=== PATIENT | female | born 1990 | race Caucasian/White ===

== ENCOUNTER → 2023-07-19 14:37 | Outpatient (REF) | payer OTHER, SELFPAY | LOC: PNTC 14:37 | PROVIDERS: ATTENDING PHYSICIAN Obstetrics & Gynecology | DX: O24.414 Gestational diabetes mellitus in pregnancy, insulin controlled (principal); N96 Recurrent pregnancy loss; D68.61 Antiphospholipid syndrome; O35.5XX0 Maternal care for (suspected) damage to fetus by drugs, not applicable or unspecified | CPT/HCPCS: 36415; 59025; 76816; 86850; 86900; 86901; J2790 ==

== ENCOUNTER 2023-07-26 15:13 | Observation (INO) | payer OTHER, SELFPAY ==
[2023-07-26 15:59] LABS: % Basophils 0.3 % (0-2); % Eosinophils 0.9 % (0-6); % Immature Granulocytes 0.4 % (0-0.5); % Lymphocytes 18.1 % (20.5-51.1); % Monocytes 6.6 % (1.7-9.3); % Neutrophils 73.7 % (42.2-75.2); Absolute Eosinophils 0.1 10^3/uL (0-0.7); Absolute Immature Granulocytes 0.1 10^3/uL (0-0.05); Absolute Monocytes 0.7 10^3/uL (0.1-0.6); Absolute Neutrophils 8.3 10^3/uL (1.4-6.5); Hematocrit 35.3 % (37.0-47.0); Hemoglobin 12.6 g/dL (12.0-16.0); Mean Corp Hgb Conc. 35.7 g/dL (33.0-37.0); Mean Corpuscular Hgb 28.8 pg (27.0-31.0); Mean Corpuscular Volume 80.6 fL (81.0-99.0); Mean Platelet Volume 9.9 fL (7.4-10.4); Nucleated Red Blood Cells % 0 %; Platelet Count 217 10^3/uL (130-400); Red Blood Cell Count 4.38 10^6/uL (4.20-5.40); Red Cell Dist. Width 13.6 % (11.5-14.5); White Blood Cell Count 11.3 10^3/uL (4.8-10.8)
[2023-07-26 16:00] VITALS: BP 150/102; BMI 38.5
[2023-07-26 16:00] LABS: Urine Albumin Negative (Neg - Trace); Urine Bilirubin Negative (Negative); Urine Character Slightly Cloudy (Clear); Urine Color Yellow; Urine Glucose 2+ (Negative); Urine Ketone Trace (Negative); Urine Leukocyte Negative (Negative); Urine Nitrite Negative (Negative); Urine Occult Blood Negative (Negative); Urine Urobilinogen Negative (Neg - 1+)
[2023-07-26 16:15] LABS: ALT (SGPT) 14 U/L (0-35); AST (SGOT) 20 U/L (14-36); Albumin 3.3 g/dl (3.5-5.0); Alkaline Phosphatase 110 U/L (38-126); Blood Urea Nitrogen 11 mg/dl (7-17); Calcium 8.7 mg/dl (8.4-10.2); Carbon Dioxide 21 mmol/L (22-30); Chloride 106 mmol/L (98-107); Estimated Creatinine Clearance > 125 ml/min; Glucose 145 mg/dl (70-99); Potassium 3.7 mmol/L (3.5-5.1); Sodium 130 mmol/L (135-145); Total Bilirubin 0.4 mg/dl (0.2-1.3); Total Protein 6.1 g/dl (6.3-8.2); Uric Acid 5.3 mg/dl (2.5-6.2); eGFR > 60.00
[2023-07-26 16:37] LABS: Urine Protein < 5 mg/dl
== END 2023-07-26 17:15 | disposition home or self-care (01) ==
LOC: PNTC-IN 15:13
PROVIDERS: ADMITTING PHYSICIAN Obstetrics & Gynecology; ATTENDING PHYSICIAN Obstetrics & Gynecology
DX: O26.23 Pregnancy care for patient with recurrent pregnancy loss, third trimester (principal); Z3A.33 33 weeks gestation of pregnancy; O99.113 Other diseases of the blood and blood-forming organs and certain disorders involving the immune mechanism complicating pregnancy, third trimester; D68.61 Antiphospholipid syndrome; O40.3XX0 Polyhydramnios, third trimester, not applicable or unspecified; O24.414 Gestational diabetes mellitus in pregnancy, insulin controlled; F11.20 Opioid dependence, uncomplicated; Z88.8 Allergy status to other drugs, medicaments and biological substances; Z91.048 Other nonmedicinal substance allergy status
CPT/HCPCS: 59025; 76815; 80053; 81003; 82570; 84156; 84550; 85025; G0378

== ENCOUNTER 2023-07-28 10:10 | Observation (INO) | payer OTHER, SELFPAY ==
[2023-07-28 10:44] VITALS: BP 152/87; BMI 38.6
[2023-07-28 12:37] LABS: Hematocrit 37.8 % (37.0-47.0); Hemoglobin 13.2 g/dL (12.0-16.0); Mean Corp Hgb Conc. 34.9 g/dL (33.0-37.0); Mean Corpuscular Hgb 28.2 pg (27.0-31.0); Mean Corpuscular Volume 80.8 fL (81.0-99.0); Mean Platelet Volume 9.9 fL (7.4-10.4); Platelet Count 222 10^3/uL (130-400); Red Blood Cell Count 4.68 10^6/uL (4.20-5.40); Red Cell Dist. Width 13.7 % (11.5-14.5); White Blood Cell Count 12.6 10^3/uL (4.8-10.8)
[2023-07-28] MEDS: CELESTONE SOLUSPAN 2 MG IM (12:40)
[2023-07-28 12:55] LABS: ALT (SGPT) 13 U/L (0-35); AST (SGOT) 20 U/L (14-36); Albumin 3.3 g/dl (3.5-5.0); Alkaline Phosphatase 113 U/L (38-126); Blood Urea Nitrogen 11 mg/dl (7-17); Calcium 8.8 mg/dl (8.4-10.2); Carbon Dioxide 23 mmol/L (22-30); Chloride 105 mmol/L (98-107); Estimated Creatinine Clearance > 125 ml/min; Glucose 57 mg/dl (70-99); Potassium 3.7 mmol/L (3.5-5.1); Sodium 133 mmol/L (135-145); Total Bilirubin 0.6 mg/dl (0.2-1.3); Total Protein 6.2 g/dl (6.3-8.2); eGFR > 60.00
[2023-07-28] MEDS: METHADONE 100 MG/10 ML 9 MG PO (13:49)
[2023-07-28 15:32] LABS: Glucose - Point of Care 149 mg/dl (70-99)
[2023-07-28] MEDS: NOVOLOG FLEXPEN-HIGH RESISTANCE 1 UNITS SC (16:09)
[2023-07-28 18:39] LABS: Glucose - Point of Care 212 mg/dl (70-99)
[2023-07-28] MEDS: HUMULIN N KWIKPEN 20 UNITS SC (18:39)
[2023-07-28] MEDS: NovoLIN R Flexpen 10 UNITS SC (18:44)
[2023-07-28] MEDS: PRENATAL PLUS 1 TABLET PO (20:25)
[2023-07-28 21:02] LABS: Glucose - Point of Care 216 mg/dl (70-99)
[2023-07-28] MEDS: NOVOLOG FLEXPEN-HIGH RESISTANCE 4 UNITS SC (21:07)
[2023-07-29] MEDS: HUMULIN N KWIKPEN SC (00:04)
[2023-07-29] MEDS: NovoLIN R Flexpen SC (00:05)
[2023-07-29 06:08] LABS: Glucose - Point of Care 174 mg/dl (70-99)
[2023-07-29] MEDS: NOVOLOG FLEXPEN-HIGH RESISTANCE 2 UNITS SC ×3 (06:10→14:11)
[2023-07-29 06:46] LABS: ALT (SGPT) 14 U/L (0-35); AST (SGOT) 18 U/L (14-36); Albumin 3.1 g/dl (3.5-5.0); Alkaline Phosphatase 110 U/L (38-126); Blood Urea Nitrogen 14 mg/dl (7-17); Calcium 9.2 mg/dl (8.4-10.2); Carbon Dioxide 21 mmol/L (22-30); Chloride 103 mmol/L (98-107); Estimated Creatinine Clearance > 125 ml/min; Glucose 179 mg/dl (70-99); Potassium 4.1 mmol/L (3.5-5.1); Sodium 133 mmol/L (135-145); Total Bilirubin 0.5 mg/dl (0.2-1.3); Total Protein 5.9 g/dl (6.3-8.2); eGFR > 60.00
[2023-07-29 06:52] LABS: Hematocrit 37.9 % (37.0-47.0); Hemoglobin 12.9 g/dL (12.0-16.0); Mean Corpuscular Hgb 28.7 pg (27.0-31.0); Mean Corpuscular Volume 84.2 fL (81.0-99.0); Mean Platelet Volume 10.2 fL (7.4-10.4); Platelet Count 241 10^3/uL (130-400); Red Cell Dist. Width 13.6 % (11.5-14.5); White Blood Cell Count 16.8 10^3/uL (4.8-10.8)
[2023-07-29] MEDS: NovoLIN R Flexpen 10 UNITS SC ×2 (07:41→17:13)
[2023-07-29] MEDS: HUMULIN N KWIKPEN 20 UNITS SC ×2 (07:45→17:10)
[2023-07-29] MEDS: METHADONE 100 MG/10 ML 9 MG PO ×2 (07:47→15:56)
[2023-07-29] MEDS: HEPARIN 5000 UNITS SC ×3 (08:12→23:52)
[2023-07-29 10:24] LABS: Glucose - Point of Care 188 mg/dl (70-99)
[2023-07-29] MEDS: CELESTONE SOLUSPAN 2 MG IM (12:51)
[2023-07-29 13:06] LABS: Urine Protein < 5 mg/dl (0-12)
[2023-07-29 13:07] LABS: 24 Hour Urine Total Volume 1300 ml
[2023-07-29 14:08] LABS: Glucose - Point of Care 166 mg/dl (70-99)
[2023-07-29 15:19] LABS: Serum Creatinine 0.5 mg/dl (0.7-1.5)
[2023-07-29 15:20] LABS: 24 Hour Urine Total Volume 1300 ml; Height Cm 162.56 CM
[2023-07-29 15:25] LABS: Surface Area 2.056
[2023-07-29] MEDS: ADACEL 0.5 ML IM (15:36)
[2023-07-29] MEDS: TUMS EX (EXTRA STRENGTH) CHEWABLE 2 TABLET PO (17:33)
[2023-07-29 19:49] LABS: Glucose - Point of Care 225 mg/dl (70-99)
[2023-07-29] MEDS: NOVOLOG FLEXPEN-HIGH RESISTANCE 4 UNITS SC (19:55)
[2023-07-29] MEDS: PRENATAL PLUS 1 TABLET PO (23:52)
[2023-07-30] MEDS: NOVOLOG FLEXPEN-HIGH RESISTANCE 1 UNITS SC (07:01)
[2023-07-30 07:05] LABS: Glucose - Point of Care 149 mg/dl (70-99)
[2023-07-30] MEDS: NovoLIN R Flexpen 10 UNITS SC ×2 (07:54→17:13)
[2023-07-30] MEDS: HUMULIN N KWIKPEN 20 UNITS SC ×2 (07:54→17:14)
[2023-07-30] MEDS: METHADONE 100 MG/10 ML 9 MG PO ×2 (07:57→13:48)
[2023-07-30] MEDS: HEPARIN 5000 UNITS SC ×2 (07:57→16:13)
[2023-07-30] MEDS: NOVOLOG FLEXPEN-HIGH RESISTANCE 2 UNITS SC ×2 (10:30→13:49)
[2023-07-30 10:31] LABS: Glucose - Point of Care 168 mg/dl (70-99)
[2023-07-30 13:47] LABS: Glucose - Point of Care 187 mg/dl (70-99)
[2023-07-30] MEDS: TUMS EX (EXTRA STRENGTH) CHEWABLE 2 TABLET PO (14:39)
[2023-07-30 19:35] LABS: Glucose - Point of Care 227 mg/dl (70-99)
[2023-07-30] MEDS: NOVOLOG FLEXPEN-HIGH RESISTANCE 4 UNITS SC (19:43)
[2023-07-31] MEDS: HEPARIN 5000 UNITS SC ×3 (00:01→15:59)
[2023-07-31] MEDS: PRENATAL PLUS 1 TABLET PO (00:03)
[2023-07-31 06:18] LABS: Glucose - Point of Care 112 mg/dl (70-99)
[2023-07-31] MEDS: NOVOLOG FLEXPEN-HIGH RESISTANCE 1 UNITS SC ×2 (06:22→10:15)
[2023-07-31] MEDS: METHADONE 100 MG/10 ML 9 MG PO ×2 (07:41→14:09)
[2023-07-31] MEDS: NovoLIN R Flexpen 10 UNITS SC ×2 (07:42→17:25)
[2023-07-31] MEDS: HUMULIN N KWIKPEN 20 UNITS SC ×2 (07:42→17:25)
[2023-07-31 10:15] LABS: Glucose - Point of Care 127 mg/dl (70-99)
[2023-07-31 13:28] LABS: Glucose - Point of Care 151 mg/dl (70-99)
[2023-07-31] MEDS: NOVOLOG FLEXPEN-HIGH RESISTANCE 2 UNITS SC ×2 (13:28→20:15)
[2023-07-31 20:28] LABS: Glucose - Point of Care 181 mg/dl (70-99)
[2023-08-01] MEDS: HEPARIN 5000 UNITS SC ×2 (00:06→08:03)
[2023-08-01] MEDS: PRENATAL PLUS 1 TABLET PO (00:06)
[2023-08-01 06:16] LABS: Glucose - Point of Care 105 mg/dl (70-99)
[2023-08-01] MEDS: NOVOLOG FLEXPEN-HIGH RESISTANCE 1 UNITS SC ×2 (06:36→10:06)
[2023-08-01 06:41] LABS: % Basophils 0.3 % (0-2); % Eosinophils 0.8 % (0-6); % Immature Granulocytes 0.9 % (0-0.5); % Lymphocytes 21.9 % (20.5-51.1); % Monocytes 8.1 % (1.7-9.3); Absolute Eosinophils 0.1 10^3/uL (0-0.7); Absolute Immature Granulocytes 0.1 10^3/uL (0-0.05); Absolute Lymphocytes 2.8 10^3/uL (1.2-3.4); Absolute Neutrophils 8.7 10^3/uL (1.4-6.5); Hematocrit 37.5 % (37.0-47.0); Hemoglobin 12.8 g/dL (12.0-16.0); Mean Corp Hgb Conc. 34.1 g/dL (33.0-37.0); Mean Corpuscular Hgb 28.8 pg (27.0-31.0); Mean Corpuscular Volume 84.3 fL (81.0-99.0); Mean Platelet Volume 10.5 fL (7.4-10.4); Nucleated Red Blood Cells % 0 %; Platelet Count 208 10^3/uL (130-400); Red Blood Cell Count 4.45 10^6/uL (4.20-5.40); Red Cell Dist. Width 13.5 % (11.5-14.5); White Blood Cell Count 12.8 10^3/uL (4.8-10.8)
[2023-08-01 06:55] LABS: ALT (SGPT) 15 U/L (0-35); AST (SGOT) 23 U/L (14-36); Alkaline Phosphatase 104 U/L (38-126); Blood Urea Nitrogen 13 mg/dl (7-17); Carbon Dioxide 25 mmol/L (22-30); Chloride 104 mmol/L (98-107); Estimated Creatinine Clearance > 125 ml/min; Glucose 107 mg/dl (70-99); Potassium 4.2 mmol/L (3.5-5.1); Sodium 132 mmol/L (135-145); Total Bilirubin 0.4 mg/dl (0.2-1.3); Total Protein 5.6 g/dl (6.3-8.2); eGFR > 60.00
[2023-08-01] MEDS: NovoLIN R Flexpen 10 UNITS SC (07:31)
[2023-08-01] MEDS: HUMULIN N KWIKPEN 20 UNITS SC (07:33)
[2023-08-01] MEDS: PRENATAL PLUS PO (08:00)
[2023-08-01] MEDS: METHADONE 100 MG/10 ML 9 MG PO (08:02)
--- NOTE | 2023-08-01 09:42 | CM ---
CM reviewed pt with nursing
Anticipate dc soon
No current CM or discharge needs noted
CM will remain available for dc planning and resource coordination if needed
[2023-08-01 10:05] LABS: Glucose - Point of Care 127 mg/dl (70-99)
== END 2023-08-01 13:52 | disposition home or self-care (01) ==
LOC: LDRP 10:10
PROVIDERS: Obstetrics & Gynecology; ADMITTING PHYSICIAN Obstetrics & Gynecology
DX: O24.414 Gestational diabetes mellitus in pregnancy, insulin controlled (principal); Z3A.34 34 weeks gestation of pregnancy; G43.909 Migraine, unspecified, not intractable, without status migrainosus; F11.90 Opioid use, unspecified, uncomplicated; O99.353 Diseases of the nervous system complicating pregnancy, third trimester; G35 Multiple sclerosis; O99.213 Obesity complicating pregnancy, third trimester; Z82.49 Family history of ischemic heart disease and other diseases of the circulatory system; Z83.3 Family history of diabetes mellitus; Z88.8 Allergy status to other drugs, medicaments and biological substances; Z91.048 Other nonmedicinal substance allergy status; Z98.1 Arthrodesis status; Z79.82 Long term (current) use of aspirin; Z79.01 Long term (current) use of anticoagulants; Z79.4 Long term (current) use of insulin; Z23 Encounter for immunization
CPT/HCPCS: 76815; 80053; 81050; 82575; 82962; 84156; 85025; 85027; 90715; G0378

== ENCOUNTER 2023-08-04 08:35 | Inpatient (IN) | payer OTHER, SELFPAY ==
[2023-08-04 09:05] VITALS: BP 176/107; BMI 38.8
[2023-08-04] MEDS: APRESOLINE 10 MG IV ×2 (09:07→09:25)
[2023-08-04] MEDS: MAGNESIUM SULFATE 100 IV (09:27)
[2023-08-04] MEDS: LR 1000 IV ×2 (09:28→21:29)
[2023-08-04 09:45] LABS: % Basophils 0.2 % (0-2); % Immature Granulocytes 0.6 % (0-0.5); % Lymphocytes 22.5 % (20.5-51.1); % Neutrophils 67.7 % (42.2-75.2); Absolute Eosinophils 0.1 10^3/uL (0-0.7); Absolute Immature Granulocytes 0.1 10^3/uL (0-0.05); Absolute Lymphocytes 2.8 10^3/uL (1.2-3.4); Absolute Neutrophils 8.4 10^3/uL (1.4-6.5); Hematocrit 39.1 % (37.0-47.0); Hemoglobin 13.5 g/dL (12.0-16.0); Mean Corp Hgb Conc. 34.5 g/dL (33.0-37.0); Mean Corpuscular Hgb 28.2 pg (27.0-31.0); Mean Corpuscular Volume 81.8 fL (81.0-99.0); Mean Platelet Volume 10.3 fL (7.4-10.4); Nucleated Red Blood Cells % 0 %; Platelet Count 215 10^3/uL (130-400); Red Blood Cell Count 4.78 10^6/uL (4.20-5.40); Red Cell Dist. Width 13.9 % (11.5-14.5); White Blood Cell Count 12.4 10^3/uL (4.8-10.8)
[2023-08-04] MEDS: MAGNESIUM SULFATE 40 GRAM 1000 IV (09:53)
[2023-08-04 09:56] LABS: ALT (SGPT) 15 U/L (0-35); AST (SGOT) 21 U/L (14-36); Albumin 3.4 g/dl (3.5-5.0); Alkaline Phosphatase 115 U/L (38-126); Blood Urea Nitrogen 13 mg/dl (7-17); Calcium 9.2 mg/dl (8.4-10.2); Carbon Dioxide 24 mmol/L (22-30); Chloride 105 mmol/L (98-107); Estimated Creatinine Clearance > 125 ml/min; Glucose 105 mg/dl (70-99); Sodium 133 mmol/L (135-145); Total Bilirubin 0.4 mg/dl (0.2-1.3); Total Protein 6.2 g/dl (6.3-8.2); eGFR > 60.00
[2023-08-04 10:32] LABS: Protein/creatinine Ratio 0.2; Urine Protein 22 mg/dl
[2023-08-04] MEDS: CYTOTEC 50 MICROGRAM VAG (11:50)
[2023-08-04] MEDS: TYLENOL 650 MG PO (12:30)
[2023-08-04] MEDS: HEPARIN 5000 UNITS SC ×2 (12:36→20:06)
[2023-08-04 13:17] LABS: Glucose - Point of Care 105 mg/dl (70-99)
[2023-08-04] MEDS: METHADONE 100 MG/10 ML 9 MG PO (14:02)
[2023-08-04 16:02] LABS: Magnesium 4.4 mg/dl (1.6-2.3)
[2023-08-04] MEDS: CYTOTEC 25 MICROGRAM PO ×2 (16:45→21:08)
[2023-08-04] MEDS: PERCOCET 5/325 1 TABLET PO (16:45)
[2023-08-04] MEDS: ZOFRAN 4 MG IV (16:45)
[2023-08-04] MEDS: HUMULIN N KWIKPEN 20 UNITS SC (17:14)
[2023-08-04] MEDS: NovoLIN R Flexpen 10 UNITS SC (17:15)
[2023-08-04] MEDS: FIORICET 2 TAB PO (20:29)
[2023-08-04 20:31] LABS: Glucose - Point of Care 100 mg/dl (70-99)
[2023-08-04 22:18] LABS: Magnesium 5.3 mg/dl (1.6-2.3)
[2023-08-05] MEDS: CYTOTEC 25 MICROGRAM PO ×2 (01:11→05:14)
[2023-08-05] MEDS: HEPARIN 5000 UNITS SC (04:13)
[2023-08-05] MEDS: METHADONE 100 MG/10 ML 9 MG PO ×2 (06:07→14:01)
[2023-08-05 06:13] LABS: Glucose - Point of Care 110 mg/dl (70-99)
[2023-08-05] MEDS: LR 1000 IV ×2 (07:30→12:27)
[2023-08-05] MEDS: NovoLIN R Flexpen 10 UNITS SC (07:38)
[2023-08-05] MEDS: HUMULIN N KWIKPEN 20 UNITS SC (07:39)
[2023-08-05 08:32] LABS: Glucose - Point of Care 160 mg/dl (70-99)
[2023-08-05] MEDS: ANCEF 10 IV (08:43)
[2023-08-05] MEDS: BICITRA 30 ML PO (08:44)
[2023-08-05] MEDS: TYLENOL 1000 MG PO (08:44)
[2023-08-05] MEDS: ZITHROMAX INFUSION 250 IV (09:14)
[2023-08-05] MEDS: PITOCIN 30 UNITS/NSS 500 ML IV (10:15)
[2023-08-05 10:49] LABS: Magnesium 3.6 mg/dl (1.6-2.3)
[2023-08-05] MEDS: CYTOTEC PO (11:27)
[2023-08-05] MEDS: TYLENOL 650 MG PO ×3 (12:15→20:18)
[2023-08-05] MEDS: MAGNESIUM SULFATE 40 GRAM 1000 IV ×2 (12:29→14:22)
[2023-08-05] MEDS: MAGNESIUM SULFATE 40 GRAM IV (12:32)
[2023-08-05] MEDS: MOTRIN 600 MG PO (23:04)
[2023-08-06] MEDS: TYLENOL 650 MG PO ×4 (00:19→18:14)
[2023-08-06] MEDS: LR 1000 IV (04:13)
[2023-08-06] MEDS: MOTRIN 600 MG PO ×3 (05:06→18:14)
[2023-08-06 05:35] LABS: Hematocrit 33.5 % (37.0-47.0); Hemoglobin 11.6 g/dL (12.0-16.0); Mean Corp Hgb Conc. 34.6 g/dL (33.0-37.0); Mean Corpuscular Hgb 29.1 pg (27.0-31.0); Mean Platelet Volume 10.3 fL (7.4-10.4); Platelet Count 217 10^3/uL (130-400); Red Blood Cell Count 3.99 10^6/uL (4.20-5.40); Red Cell Dist. Width 13.9 % (11.5-14.5)
[2023-08-06] MEDS: METHADONE 100 MG/10 ML 9 MG PO ×2 (06:08→14:34)
[2023-08-06] MEDS: MAGNESIUM SULFATE 40 GRAM 1000 IV (06:34)
[2023-08-06] MEDS: PRENATAL PLUS 1 TABLET PO (09:01)
[2023-08-06] MEDS: LR IV (18:07)
[2023-08-06] MEDS: LOVENOX 40 MG SC (18:08)
--- NOTE | 2023-08-06 19:30 | W.PN.ANS.POP ---
Anesthesia Post Operative
- Anesthesia Post Op Note
Vital Signs Stable-See Nursing Note: Yes
Airway Patent: Yes
Adequate Pain Control: Yes
Change in Mental Status: No
Current Postoperative Nausea & Vomiting: No
Anesthesia Complications: No
General Anesthetic Recall: No
Unplanned Admission: No
Post Op Hydration Adequate: Yes
[2023-08-07] MEDS: MOTRIN 600 MG PO ×4 (00:58→19:16)
[2023-08-07] MEDS: TYLENOL 650 MG PO ×5 (00:58→23:35)
[2023-08-07] MEDS: METHADONE 100 MG/10 ML 9 MG PO ×2 (05:55→14:15)
[2023-08-07] MEDS: PRENATAL PLUS 1 TABLET PO (07:11)
--- NOTE | 2023-08-07 13:52 | CM ---
CM received phone call from nurse due to mothers prescription for methadone. CM met with parents, congratulated on on son, Magnus JIMENEZ 08/05/23. CM discussed referral to [facility] Line as mandated law, parents understanding. CM asked the parents
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 Mother reports she has been on methadone for 10 years, 9 mg, through [facility] in [place]. Mother reports she has never given the clinic a dirty urine and has weaned her dose quite a bit. 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
removal as the work is seasonal. Father reports they are working with [facility] through [facility] and they are utilizing all of the support/resources they can. CM discussed the parents would receive a
call from [facility], and that most likely an agency worker would come to the hospital to complete and assessment, along with potentially conducting a home visit. Parents report they have everything they need for their son. Parents reports
they have no question for CM at this time.
CM spoke with nurse, reports that the parents have been been attentive and genuine. Per nurse, the father has not held or fed the baby as of yet. Nurse reports that they are currently doing eat, sleep, and console method, earliest child could be
discharged would be 08/10/23. Per nurse, child is no longer tube feeding or receiving IV fluids, mother is pumping, child is receiving donor milk. Nurse reports the child is very consollable and the mother has been doing a lot of skin to
skin. Nurse reports that the father does have a nine year old, Luis, who he has shared custody of. CM did ask the parents if they have other children which they stated no.
REID spoke with Sera, spinning lathe operator automatic #[phone] to make [facility] report.
Plan; await call from [facility], will require clearance before child is discharged home.
[2023-08-07] MEDS: LOVENOX 40 MG SC (18:22)
[2023-08-08] MEDS: MOTRIN 600 MG PO ×4 (01:10→19:57)
[2023-08-08] MEDS: METHADONE 100 MG/10 ML 9 MG PO ×2 (05:55→14:08)
[2023-08-08] MEDS: TYLENOL 650 MG PO ×3 (07:18→19:57)
[2023-08-08] MEDS: PRENATAL PLUS 1 TABLET PO (07:19)
[2023-08-08] MEDS: TRANDATE 200 MG PO ×2 (09:24→19:57)
[2023-08-08] MEDS: LOVENOX 40 MG SC (18:06)
[2023-08-09] MEDS: MOTRIN 600 MG PO ×3 (03:03→20:57)
[2023-08-09] MEDS: TYLENOL 650 MG PO ×4 (03:03→20:57)
[2023-08-09] MEDS: METHADONE 100 MG/10 ML 9 MG PO ×2 (06:25→14:35)
[2023-08-09] MEDS: TRANDATE 200 MG PO ×2 (08:29→20:57)
[2023-08-09] MEDS: PRENATAL PLUS 1 TABLET PO (08:29)
--- NOTE | 2023-08-09 15:56 | CM ---
CM spoke with [facility] agency worker, Kush Mars. Per Kush, met with both the mother and father. Kush reports she will most likely conduct a Plan of Safe Care tomorrow morning depending on when the baby is medically clear for discharge.
TT sent to babies nurse. CM will update agency worker on babies progress/plan for discharge.
Plan; home with family, pending clearance from [facility]
[2023-08-09 16:20] LABS: Syphilis/T. pallidum Ab Reflex Negative (Negative)
[2023-08-09] MEDS: LOVENOX 40 MG SC (19:51)
[2023-08-10] MEDS: MOTRIN 600 MG PO ×2 (04:00→12:36)
[2023-08-10] MEDS: TYLENOL 650 MG PO ×2 (04:00→12:36)
--- NOTE | 2023-08-10 04:10 | DOWNTIME ---
There was a [employer] Client Reverse Unit Operator Fisherman Downtime on 08/10/2023 from 0111 to 08/10/2023 at 0405. Downtime documentation of patient's care, including medication administrations, has been reconciled in the electronic record per guidelines. Refer to the
patient's paper chart under the miscellaneous tab to see printed paper medication records and downtime forms.
[2023-08-10] MEDS: METHADONE 100 MG/10 ML 9 MG PO ×2 (06:45→13:55)
[2023-08-10] MEDS: PRENATAL PLUS 1 TABLET PO (08:29)
[2023-08-10] MEDS: TRANDATE 200 MG PO ×2 (08:29→12:36)
--- NOTE | 2023-08-10 11:09 | CM ---
CM reviewed pt with nursing- plan for dc for mother and baby today
Plan of safe care meeting bedside with mother and father along with David CELIS/Kush Mars [phone] (conference call)
Discussed follow up for mother and baby- mother and father receptive and in agreement with plan of safe care
Plan for discharge home today and David CELIS to complete home visit later today and will continue to follow mother and baby in community
Discharge planning reviewed- mother and baby with no CM dc needs
== END 2023-08-10 17:38 | disposition home or self-care (01) | DRG 787 ==
LOC: LDRP 08:35
PROVIDERS: Obstetrics & Gynecology; ADMITTING PHYSICIAN Obstetrics & Gynecology
PROC: 3E0P7VZ Introduction of Hormone into Female Reproductive, Via Natural or Artificial Opening (ICD-10-PCS; 2023-08-04)
PROC: 10D00Z1 Extraction of Products of Conception, Low, Open Approach (ICD-10-PCS; 2023-08-05)
DX: O14.14 Severe pre-eclampsia complicating childbirth (principal); D68.61 Antiphospholipid syndrome; O99.12 Other diseases of the blood and blood-forming organs and certain disorders involving the immune mechanism complicating childbirth; O99.214 Obesity complicating childbirth; O24.424 Gestational diabetes mellitus in childbirth, insulin controlled; O13.4 Gestational [pregnancy-induced] hypertension without significant proteinuria, complicating childbirth; O40.3XX0 Polyhydramnios, third trimester, not applicable or unspecified; O34.13 Maternal care for benign tumor of corpus uteri, third trimester; D25.2 Subserosal leiomyoma of uterus; Z37.0 Single live birth; O26.893 Other specified pregnancy related conditions, third trimester; Z67.41 Type O blood, Rh negative; Z3A.35 35 weeks gestation of pregnancy
CPT/HCPCS: 88307; 59025; 80053; 82570; 82962; 83735; 84156; 85025; 85027; 86780; 86850; 86870; 86900; 86901; 87070

== ENCOUNTER 2025-01-03 00:30 | Emergency (ER) | payer OTHER, SELFPAY ==
[2025-01-03 00:35] VITALS: BP 204/126
[2025-01-03 01:10] VITALS: BMI 35.0
[2025-01-03 01:15] VITALS: BP 177/106
[2025-01-03 01:40] LABS: Hematocrit 36.7 % (37.0-47.0); Hemoglobin 12.9 g/dL (12.0-16.0); Mean Corp Hgb Conc. 35.1 g/dL (33.0-37.0); Mean Corpuscular Volume 82.1 fL (81.0-99.0); Nucleated Red Blood Cells % 0 %; Platelet Count 220 10^3/uL (130-400); Red Cell Dist. Width 12.8 % (11.5-14.5)
[2025-01-03 01:52] LABS: HCG, Serum Qualitative Screen Negative
--- NOTE | 2025-01-03 01:58 | ED.GENMED ---
History of Present Illness
General
Chief Complaint: Blood Pressure Problem
Source: patient
Exam Limitations: none
Time Seen by Provider: 01/03/25 01:43
Nursing documentation reviewed up to this point in time: agreed with
History of Present Illness
History of Present Illness:
34-year-old female with a past medical history of multiple sclerosis and preeclampsia/ associated hypertension (not on chronic antihypertensives), history of opioid use on methadone who presents to the emergency department for evaluation of
arm tingling and pain. Patient reports that for about 2 weeks she has been having some pain in her left arm that she describes as an aching in her bicep that she attributed to a bicep strain. She says that today she started having some tingling in
her left arm as well that continued throughout the day. She says that she has occasionally gotten paresthesias with MS but this did not feel like her typical MS symptoms. She says that she researched her symptoms on the Internet and was concerned
that perhaps they could be a sign of a heart attack. She decided to check her blood pressure and noted that it was very high and when she rechecked it a bit later noted that it had increased even further. She decided to drive to the emergency to
be evaluated and she says that while she was driving she think she may have been panicking and started to have some chest discomfort. She says that aside from some aching in her arm which remains the rest of her symptoms have resolved since
arriving in the ER. She no longer has paresthesias, denies chest pain. She never had any shortness of breath, dizziness or any other acute issues. She does report that she has had issues with hypertension in the past during most recent
of which was July 2023 but has not been on chronic antihypertensives and says that blood pressure in the past has improved after .
Review of Systems
Review of Systems
All Other Systems: ROS reviewed and negative except as documented in HPI and ROS
Constitutional: Denies fever
Respiratory: Denies cough or trouble breathing
Cardiac: Reports chest pain; Denies palpitations
ABD/GI: Denies abdominal pain, nausea or vomiting
Musculoskeletal: Reports muscle pain; Denies neck pain or back pain
Neurological: Denies dizzy or headache
Psychiatric: Reports anxiety
Phy Exam
Physical Exam
Physical Exam:
General: Awake, alert, oriented x3; no acute distress
Head: Normocephalic, atraumatic
Eyes: Conjunctiva normal, sclera anicteric
Throat: Airway intact, handling secretions
Neck: Trachea midline, no JVD
Lungs: Clear to auscultation bilaterally, no wheezing, rales, rhonchi
Heart: Regular rate and rhythm, no murmurs, gallops, or rubs
Abd: Soft, non distended, nontender
Neuro: Cranial nerves grossly intact, speech fluid, no gross motor or sensory deficits�specifically good library services coordinator strength and proximal strength in the left upper extremity and sensory exam is intact radial, median, ulnar nerve distribution
Skin: no rash
Extremities: No edema in extremities, no calf tenderness, equal pulses in all extremities
Scores
Heart Failure Risk
Heart Failure Risk Score: Not Applicable
Heart Score for Chest Pain Patients
STEMI patient?: No
History: Slightly or Non-Suspicious
ECG: Normal
Age: </= 45 years
Risk Factors: 1 or 2 Risk Factors
Troponin: </= Normal Limit
Heart Score for Chest Pain Patients: 1
Heart Score Risk: 2.5% MACE over next 6 weeks
Withdrawal Assessment of Alcohol
Withdrawal Assessment Completed?: Not applicable
Course
Orders/Labs/Results
Orders:
Orders
01/03/25 00:38
Test Result ONCE
01/03/25 01:30
Complete Blood Count/With Diff Urgent
Comprehensive Metabolic Panel Urgent
HCG, Serum Qualitative Screen Urgent
Troponin I Urgent
Comment: RUN ON SERUM
01/03/25 01:57
Add On- LAB Urgent
Tests Added?: troponin
01/03/25 01:58
CR Chest - 2 Views Urgent
Comment:
Reason For Exam: cp
01/03/25 02:03
Electrocardiogram (*1) Urgent
Reason for Study: Chest Pain
EKG- Treatment ONCE
01/03/25 02:43
Troponin I Urgent
Abnormal Lab Results
01/03/25
01:30
Hct 36.7 L %
(37.0-47.0)
Absolute Neuts (auto) 6.7 H 10^3/uL
(1.4-6.5)
Potassium 3.4 L mmol/L
(3.5-5.1)
Glucose 173 H mg/dl
(70-99)
01/03/25 01:30
01/03/25 01:30
Vital Signs
Initial and Last Documented VS:
Initial Vital Signs
Temp Pulse Resp BP Pulse Ox
36.7 C 130 20 204/126 98
01/03/25 00:35 01/03/25 00:35 01/03/25 00:35 01/03/25 00:35 01/03/25 00:35
Last Documented Vital Signs
Temp Pulse Resp BP Pulse Ox
36.7 C 79 15 160/110 97
01/03/25 00:35 01/03/25 03:45 01/03/25 03:45 01/03/25 03:00 01/03/25 03:45
MDM/Problems Addressed
Differential Diagnosis Includes:
Cervical radiculopathy, bicep strain, panic attack, MS flare less likely given resolution of paresthesias
MDM/Problems Addressed:
34-year-old female presents to the ER for evaluation of left arm paresthesias and hypertension this evening in the setting of recent bicep aching over the past few weeks. She had some transient chest pain in the right abdomen that she attributes to
anxiety. She was hypertensive in triage to 204/126 and tachycardic�her blood pressure has improved but not normalized by my assessment, heart rate normal range on my assessment. Rest of vitals have been normal. Physical exam as above. Plan to
check EKG. Will send labs including CBC and CMP, troponin. Check chest x-ray. Monitor closely reassess after the above.
Labs reviewed: CBC unremarkable, CMP shows marginal hypokalemia but no other clinically significant abnormalities. Possible that electrolyte derangement could be contribute to paresthesias today. Her troponins are undetectable x 2. Chest x-ray
shows no acute disease. She does remain hypertensive but greatly improved since arrival and in my judgment without chest pain or other signs of hypertensive emergency no indication for further emergent lowering. She will need close follow-up of
her blood pressure as an outpatient. Will replete potassium but I think she is stable for discharge. Spoke to the patient about adding some potassium to her diet, follow-up plan and return precautions. All questions answered.
Acute Exacerbation and/or Progression of Chronic Illness:
Acutely hypertensive
Acute Exacerbation and/or Progression of Chronic Illness: HTN
*Radiology
Radiology exam reviewed: radiology read reviewed
*Pulse Oximetry
SaO2: 97
Oxygen Mode of Delivery: Room air
Patient hypoxic: no (97%)
*Critical Care Note
Total Time (30-74mins, 75-104mins- exclusive of procedures): Not Applicable
Data Reviewed
Review of Other/Old Records Reveals: Labs and Records
Source: patient and records
ED Attending Note
-
Portions of this chart may have been created with voice recognition software.� Occasional wrong word or��sound alike� substitutions may have occurred due to the inherent limitations of voice recognition software.
Discharge Plan
Departure
Patient Disposition: Home (Routine Discharge)
Date of Disposition: 01/03/25
Time of Disposition: 03:48
Patient with high blood pressure during this ER visit?: Yes
Discharge Problem:
Hypertension, Arm paresthesia, left, Arm pain, Hypokalemia
Instructions: Hypokalemia, High Blood Pressure (DC), Muscle and Bone Pain (DC)
Prescriptions:
No Action
methadone [Methadose] 10 MG/ML concentrate
9 mg PO DAILY@1400
Multi 1 EACH tablet
1 ea PO DAILY
methadone [Methadose] 10 mg/mL Concentrate
9 mg PO BID@0600,1400 Qty: 0 0RF
enoxaparin 40 mg/0.4 mL Syringe
40 mg SC QPM Qty: 0 0RF
ibuprofen 600 mg Tablet
600 mg PO Q6HPRN PRN (Reason: cramps) Qty: 30 0RF
labetalol 200 mg Tablet
200 mg PO TID Qty: 90 1RF
sennosides-docusate sodium [Stool Softener-Stimulant Laxat] 8.6-50 mg Tablet
1 tab PO DAILYPRN PRN (Reason: constipation) Qty: 0 0RF
acetaminophen 325 mg Tablet
650 mg PO Q4HPRN PRN (Reason: mild pain) Qty: 0 0RF
Referrals:
UNKNOWN - PT DOES,NOT KNOW [Family Provider]
Activity Restrictions/Additional Instructions:
Thank you for visiting the Emergency Department at [facility].
1. Please schedule a follow up appointment as directed. Call first thing tomorrow morning to make an appointment.
2. If indicated, please take your medications as instructed and indicated on discharge paperwork.
3. If any of your symptoms do not improve, or persist, or become more severe within 6-12 hours, please return to the emergency department for further care.
4. Please return to the emergency department if you develop a headache, neck pain/stiffness, fever greater than 100.4F, chest pain, shortness of breath, persistent nausea, vomiting, slurred speech, difficulty walking, numbness/tingling, weakness,
signs of infection or any other symptoms that are worrisome to you.
Please call [phone] if you have any questions.
Interventions
Interventions:
*Risk Screen - Suicide Last Done: 01/03/25 00:35
*General Assessment Last Done: 01/03/25 01:25
*Neglect/Abuse Screening Last Done: 01/03/25 00:35
*ED- Fall Risk Assessment Last Done: 01/03/25 01:25
*ED COVID-19 Vaccine History Last Done: 01/03/25 01:25
ED-Skin Assessment Last Done: 01/03/25 01:25
ED-Peripheral Vascular Assessment Last Done: 01/03/25 01:25
ED- Pulmonary Assessment Last Done: 01/03/25 01:25
ED- Neurological Assessment Last Done: 01/03/25 01:25
ED-Musculoskeletal Assessment Last Done: 01/03/25 01:25
ED- Cardiac Assessment Last Done: 01/03/25 01:25
Discharge Date and Time
Print Language: [id number]
[2025-01-03 02:00] VITALS: BP 169/113
[2025-01-03 02:06] LABS: ALT (SGPT) 28 U/L (0-35); AST (SGOT) 22 U/L (14-36); Albumin 4.4 g/dl (3.5-5.0); Alkaline Phosphatase 94 U/L (38-126); Blood Urea Nitrogen 12 mg/dl (7-17); Calcium 9.0 mg/dl (8.4-10.2); Carbon Dioxide 25 mmol/L (22-30); Chloride 105 mmol/L (98-107); Estimated Creatinine Clearance > 125 ml/min; Glucose 173 mg/dl (70-99); Potassium 3.4 mmol/L (3.5-5.1); Sodium 138 mmol/L (135-145); Total Protein 7.1 g/dl (6.3-8.2); eGFR > 60.00
[2025-01-03 02:37] LABS: Troponin I < 0.012 ng/ml
[2025-01-03 03:00] VITALS: BP 160/110
[2025-01-03 03:31] LABS: Troponin I < 0.012 ng/ml
[2025-01-03] MEDS: KCL 40 MEQ PO (03:58)
== END 2025-01-03 04:05 | disposition home or self-care (01) ==
LOC: EMR 00:30
PROVIDERS: Emergency Medicine; EMERGENCY PHYSICIAN Emergency Medicine
DX: I10 Essential (primary) hypertension (principal); R20.2 Paresthesia of skin; M79.602 Pain in left arm; E87.6 Hypokalemia; G35 Multiple sclerosis; F11.90 Opioid use, unspecified, uncomplicated
CPT/HCPCS: 99285; 71046; 80053; 84484; 84703; 85025; 93005

== ENCOUNTER 2025-06-10 21:37 | Emergency (ER) | payer OTHER, SELFPAY ==
[2025-06-10 21:39] VITALS: BP 190/131
[2025-06-10 21:59] LABS: Hematocrit 38.8 % (37.0-47.0); Hemoglobin 13.6 g/dL (12.0-16.0); Mean Corp Hgb Conc. 35.1 g/dL (33.0-37.0); Mean Corpuscular Volume 82.2 fL (81.0-99.0); Nucleated Red Blood Cells % 0 %; Platelet Count 269 10^3/uL (130-400); Red Cell Dist. Width 12.1 % (11.5-14.5)
[2025-06-10 22:20] LABS: Troponin I < 0.012 ng/ml
[2025-06-10 22:22] LABS: HCG, Serum Qualitative Screen Negative
[2025-06-10 22:27] LABS: ALT (SGPT) 18 U/L (0-35); AST (SGOT) 20 U/L (14-36); Albumin 4.6 g/dl (3.5-5.0); Alkaline Phosphatase 91 U/L (38-126); Blood Urea Nitrogen 12 mg/dl (7-17); Calcium 9.3 mg/dl (8.4-10.2); Carbon Dioxide 27 mmol/L (22-30); Chloride 102 mmol/L (98-107); Glucose 164 mg/dl (70-99); Potassium 3.2 mmol/L (3.5-5.1); Sodium 138 mmol/L (135-145); Total Protein 7.5 g/dl (6.3-8.2); eGFR > 60.00
[2025-06-10 23:37] VITALS: BP 163/107
--- NOTE | 2025-06-10 23:50 | ED.GENMED ---
History of Present Illness
General
Chief Complaint: Chest Problem
Source: patient
Exam Limitations: none
Time Seen by Provider: 06/10/25 23:37
Nursing documentation reviewed up to this point in time: agreed with
History of Present Illness
History of Present Illness:
34-year-old female with past medical history of antiphospholipid antibody syndrome, hypertension, multiple sclerosis, presents to the ER today with concerns of chest pain and shortness of breath. She is also felt her heart race. She was originally
seen at urgent care who advised ER evaluation for abnormal vitals. Symptoms began 3 days ago with the chest pain initially localized to the left side but later became diffuse. Pain is described as burning sensation in feels similar to her
neuropathic pain with MS. She reports that she has never had the pain in the chest however. She also started to notice some shortness of breath occasionally with walking. Chest pain is not exacerbated by deep inspiration. She also reports
history of high blood pressure and she takes albuterol. She no longer takes heparin. She denies any redness or swelling in her legs. She denies any recent long distance travel. She denies any recent injuries or strenuous activities, she reports
that she felt like the pain was worse when she was lifting up her toddler earlier in the day. She has not had any upper respiratory symptoms including cough, flulike symptoms, fevers or chills.
Review of Systems
Review of Systems
All Other Systems: ROS reviewed and negative except as documented in HPI and ROS
Phy Exam
Physical Exam
Physical Exam:
General: Patient is well appearing and in no acute distress; non-toxic
Skin: Warm and dry, no rashes or lesions
Head: Normocephalic, atraumatic
Eyes: Sclera non-icteric. EOMs intact.
Cardiac: Regular rate and rhythm, no murmur, no reproducible chest wall tenderness
Peripheral Vascular: No lower extremity swelling or edema
Pulm: Normal respiratory effort, no wheezes, rales, rhonchi
Abdomen: No epigastric abdominal tenderness to palpation
Neuro: CN II-XII intact, no focal neurologic deficits.
Psychiatric: Appropriate mood and affect.
Course
Orders/Labs/Results
Orders:
Orders
06/10/25 21:39
Electrocardiogram (*1) Urgent
Reason for Study: Chest Pain
Cardiac Monitoring- Treatment ONCE
EKG- Treatment ONCE
IV Insert/Care/Rem.- Treatment PRN
Test Result ONCE
O2 Therapy [RESP] Urgent
Titrate/Wean O2 to maintain O2 sat greater than (%): 90
Special Instructions: Maintain sats >/=90%
Pulse Ox/spot Check [RESP] Urgent
Quantity: 1
Special Instructions: ON ROOM AIR
06/10/25 21:50
Complete Blood Count/With Diff Urgent
Comprehensive Metabolic Panel Urgent
HCG, Serum Qualitative Screen Urgent
Comment: Notify provider if positive test present
Troponin I Urgent
06/11/25 00:03
CT Chest PE Study Urgent
Comment:
Reason For Exam: chest pain, tachy, sob
Abnormal Lab Results
06/10/25
21:50
Potassium 3.2 L mmol/L
(3.5-5.1)
Glucose 164 H mg/dl
(70-99)
06/10/25 21:50
06/10/25 21:50
Vital Signs
Initial and Last Documented VS:
Initial Vital Signs
Temp Pulse Resp BP Pulse Ox
98.1 F 105 18 190/131 100
06/10/25 21:39 06/10/25 21:39 06/10/25 21:39 06/10/25 21:39 06/10/25 21:39
Last Documented Vital Signs
Temp Pulse Resp BP Pulse Ox
98.1 F 77 14 152/102 99
06/10/25 21:39 06/11/25 02:26 06/11/25 02:26 06/11/25 04:09 06/11/25 04:10
MDM/Problems Addressed
Differential Diagnosis Includes:
ddx include pulmonary embolism, pneumothorax, costochondritis, ACS, MS-related neuropathic pain, musculoskeletal sprain
MDM/Problems Addressed:
34-year-old female presents ER today with concerns of chest pain. She is sent from urgent care because she has had abnormal vitals that are including tachycardia and hypertension. She does take labetalol for high blood pressure which started to
develop after her last . Has a history of APS but does not take any anticoagulation. On physical exam she is very well-appearing in no acute distress, her heart rate is regular rate and rhythm with no murmurs, she has no reproducible
chest wall tenderness. Given her high risk history, she was sent for CTA of the chest which was negative for pulmonary embolism, aortic dissection. On reassessment, patient states that she is able to sleep comfortably but pain remains similar to
when it was before. Patient reports that she will follow-up with her primary care provider and she is a follow-up appointment beginning of June. Pain could be related to costochondritis or related to her MS pain. Patient stable to discharge.
Discussed strict return precautions
Chronic conditions affecting care:
MS, hypertension
*Pulse Oximetry
SaO2: 99
Oxygen Mode of Delivery: Room air
Patient hypoxic: no
*Critical Care Note
Total Time (30-74mins, 75-104mins- exclusive of procedures): Not Applicable
Data Reviewed
Review of Other/Old Records Reveals: Records (Reviewed ER physician documentation from 01/03/2025 patient seen for arm pain she had unremarkable since discharge)
Source: patient and records
Update Note
Update Note:
Admit not indicated
ED Attending Note
-
Portions of this chart may have been created with voice recognition software.� Occasional wrong word or��sound alike� substitutions may have occurred due to the inherent limitations of voice recognition software.
Discharge Plan
Departure
Patient Disposition: Home (Routine Discharge)
Date of Disposition: 06/11/25
Time of Disposition: 04:00
Patient with high blood pressure during this ER visit?: Yes
Condition: Good
Discharge Problem:
Chest pain
Instructions: Chest Pain (DC), BLOOD PRESSURE
Prescriptions:
No Action
methadone [Methadose] 10 MG/ML concentrate
9 mg PO DAILY@1400
Multi 1 EACH tablet
1 ea PO DAILY
methadone [Methadose] 10 mg/mL Concentrate
9 mg PO BID@0600,1400 Qty: 0 0RF
enoxaparin 40 mg/0.4 mL Syringe
40 mg SC QPM Qty: 0 0RF
ibuprofen 600 mg Tablet
600 mg PO Q6HPRN PRN (Reason: cramps) Qty: 30 0RF
labetalol 200 mg Tablet
200 mg PO TID Qty: 90 1RF
sennosides-docusate sodium [Stool Softener-Stimulant Laxat] 8.6-50 mg Tablet
1 tab PO DAILYPRN PRN (Reason: constipation) Qty: 0 0RF
acetaminophen 325 mg Tablet
650 mg PO Q4HPRN PRN (Reason: mild pain) Qty: 0 0RF
Referrals:
Real Odonnell MD [Family Provider, Internal Medicine]
Activity Restrictions/Additional Instructions:
As discussed, please follow-up with your primary care provider after the holidays. Please look out for a rash on the chest.
PLEASE RETURN TO ER IF SHE DEVELOPED ACUTE WORSENING OF YOUR SYMPTOMS, LOSS OF CONSCIOUSNESS, DIZZINESS, LIGHTHEADEDNESS, FEVERS, OR ANY OTHER SIGNS OR SYMPTOMS WORSEN YOU.
Interventions
Interventions:
*General Assessment Last Done: 06/10/25 23:41
*Neglect/Abuse Screening Last Done: 06/10/25 21:39
*ED COVID-19 Vaccine History Last Done: 06/10/25 23:41
*ED Influenza Vaccine History Last Done: 06/10/25 23:41
[facility] Risk Assessment Tool Last Done: 06/10/25 23:43
*Risk Screen - Suicide (C-SSRS) Last Done: 06/10/25 21:39
*Nursing Disposition Last Done: 06/11/25 04:17
ED- Cardiac Assessment Last Done: 06/10/25 23:40
ED- Pulmonary Assessment Last Done: 06/10/25 23:40
Discharge Date and Time
Discharge Date/Time: 06/11/25 04:18
Print Language: [id number]
[2025-06-11] VITALS: BP 169/111
[2025-06-11 01:00] VITALS: BP 153/110
[2025-06-11 02:00] VITALS: BP 163/107
[2025-06-11 04:09] VITALS: BP 152/102
== END 2025-06-11 04:18 | disposition home or self-care (01) ==
LOC: EMR 21:37
PROVIDERS: Emergency Medicine; EMERGENCY PHYSICIAN Emergency Medicine; FAMILY PHYSICIAN Internal Medicine
DX: R07.9 Chest pain, unspecified (principal); I10 Essential (primary) hypertension; G35.D Multiple sclerosis, unspecified; D68.61 Antiphospholipid syndrome
CPT/HCPCS: 99284; 71275; 80053; 84484; 84703; 85025; 93005; Q9967